=== PATIENT | female | born 1955 | race Caucasian/White ===

== ENCOUNTER 2017-05-08 23:12 | Emergency (ER) | payer OTHER ==
[2017-05-08 23:25] VITALS: BP 150/76; PULSE 84; RESP 18; O2SAT 96; BMI 42.9
[2017-05-08 23:34] VITALS: TEMP 98.1
--- NOTE | 2017-05-08 23:49 | ED PDOC ---
Arrival/HPI - General Time Seen by Provider: 05/08/17 23:21 Historian: Patient - History of Present Illness Narrative History of Present Illness (Text): 05/08/17 23:45 Norma Eaton is a 61 year old female, whose past medical history includes chronic back pain, spinal surgery, diabetes, hypertension, and anxiety, who presents to the Emergency department complaining of lower back pain for the past few days. Patient reports pain is worse when bending over. Patient had a history of chronic back pain, spinal surgery, and epidurals for pain management for which she regularly takes Oxycontin and Vicodin. Patient denies any fever, chills, chest pain, shortness of breath, nausea, vomiting, diarrhea, urinary symptoms, neck pain, headache, dizziness, or any other complaints. PMD: Dr. Christensen Time/Duration: < week (few days) Symptom Onset: Gradual Symptom Course: Unchanged Activities at Onset: Light Context: Home Past Medical History - Provider Review Nursing Documentation Reviewed: Yes - Infectious Disease Hx of Infectious Diseases: None - Tetanus Immunization Tetanus Immunization: Unknown - Past Medical History Past Medical History: No Previous - Cardiac Hx Cardiac Disorders: Yes Hx Hypertension: Yes Hx Peripheral Edema: Yes - Pulmonary Hx Respiratory Disorders: Yes Hx Chronic Obstructive Pulmonary Disease (COPD): Yes - Neurological Hx Neurological Disorder: Yes (neuropathy) - HEENT Hx HEENT Disorder: No - Renal Hx Renal Disorder: No - Endocrine/Metabolic Hx Endocrine Disorders: Yes Hx Diabetes Mellitus Type 2: Yes - Hematological/Oncological Hx Blood Disorders: No - Integumentary Hx Dermatological Disorder: No - Musculoskeletal/Rheumatological Hx Musculoskeletal Disorders: Yes Hx Arthritis: Yes Hx Falls: No - Gastrointestinal Hx Gastrointestinal Disorders: Yes Hx Gastroesophageal Reflux: Yes - Genitourinary/Gynecological Hx Genitourinary Disorders: No - Psychiatric Hx Psychophysiologic Disorder: Yes Hx Anxiety: Yes Hx Depression: Yes Hx Substance Use: No - Past Surgical History Past Surgical History: Non-Contributing - Surgical History Hx Musculoskeletal Surgery: Yes (carpal tunnel) Hx Orthopedic Surgery: Yes (R knee sx, spinal sx) Other/Comment: TUBAL LIGATION - Anesthesia Hx Anesthesia: Yes Hx Anesthesia Reactions: No Hx Malignant Hyperthermia: No - Suicidal Assessment Feels Threatened In Home Enviroment: No Family/Social History - Physician Review Nursing Documentation Reviewed: Yes Family/Social History: Unknown Family HX Smoking Status: Heavy Smoker > 10 Cigarettes Daily Hx Alcohol Use: No Hx Substance Use: No Hx Substance Use Treatment: No Allergies/Home Meds Allergies/Adverse Reactions: Allergies Penicillins Allergy (Verified 05/08/17 23:46) RASH Review of Systems - Physician Review All systems were reviewed & negative as marked: Yes - Review of Systems Constitutional: Normal. absent: Fevers Eyes: Normal ENT: Normal Respiratory: Normal. absent: SOB, Cough Cardiovascular: Normal. absent: Chest Pain Gastrointestinal: Normal. absent: Abdominal Pain, Diarrhea, Nausea, Vomiting Genitourinary Female: Normal. absent: Dysuria, Frequency, Hematuria, Urine Output Changes Musculoskeletal: Back Pain. absent: Neck Pain Skin: Normal. absent: Rash Neurological: Normal. absent: Headache, Dizziness Endocrine: Normal Hemo/Lymphatic: Normal Psychiatric: Normal Physical Exam Vital Signs Reviewed: Yes Vital Signs Temp Pulse Resp BP Pulse Ox 05/08/17 23:25 98.1 F 84 18 150/76 96 Temperature: Afebrile Blood Pressure: Normal Pulse: Regular Respiratory Rate: Normal Appearance: Positive for: Well-Appearing, Non-Toxic, Comfortable Pain Distress: None Mental Status: Positive for: Alert and Oriented X 3 - Systems Exam Head: Present: Atraumatic, Normocephalic Pupils: Present: PERRL Extroacular Muscles: Present: EOMI Conjunctiva: Present: Normal Mouth: Present: Moist Mucous Membranes Neck: Present: Normal Range of Motion Respiratory/Chest: Present: Clear to Auscultation, Good Air Exchange. No: Respiratory Distress, Accessory Muscle Use Cardiovascular: Present: Regular Rate and Rhythm, Normal S1, S2. No: Murmurs Abdomen: Present: Normal Bowel Sounds. No: Tenderness, Distention, Peritoneal Signs Back: Present: Normal Inspection Upper Extremity: Present: Normal Inspection. No: Cyanosis, Edema Lower Extremity: Present: Normal Inspection. No: Edema Neurological: Present: GCS=15, CN II-XII Intact, Speech Normal Skin: Present: Warm, Dry, Normal Color. No: Rashes Psychiatric: Present: Alert, Oriented x 3, Normal Insight, Normal Concentration Medical Decision Making ED Course and Treatment: 05/08/17 23:45 Impression: 61 year old female complaining of bilateral lower back pain. Differential Diagnosis included but are not limited to: chronic back pain vs. renal colic Plan: -- CT Abdomen and Pelvis w/o contrast -- Labs -- Urinalysis -- Toradol -- Reassess and disposition Prior Visits: Notes and results from previous visits were reviewed. On 06/30/2015, pt was seen in the Emergency department for back pain, shortness of breath, and productive cough. Pt was d/c home. Progress Notes: [place] C.O.D. AUDIT CLERK reviewed, pt received 90 tablets of Hydrocodone-Acetaminophen and 60 tablets of Oxycontin on 04/17/2017. 05/09/17 01:12 Reviewed radiology, CT Abdomen and Pelvis shows: IMPRESSION: 1. No CT evidence of urolithiasis. 2. LEFT adrenal lesion, likely benign. 3. Incidental/non-acute findings are described above. 05/09/17 02:30 On reevaluation the patient feels better and is in no acute distress. Patient is stable for discharge. Patient was instructed to follow up with physician/ clinic in 1-2 days or return if symptoms persist/worsen or new concerning symptoms arise. - Lab Interpretations Microbiology Results: Microbiology Results 05/09/17 01:16 Urine,Clean Catch Urine Culture - Final No Growth (<1,000 CFU/ML) Lab Results: 05/09/17 00:59 05/09/17 00:59 Lab Results 05/09/17 01:16: Urine Color Yellow, Urine Appearance Sl cloudy, Urine pH 6.0, Ur Specific [place] 1.010, Urine Protein Negative, Urine Glucose (UA) Negative, Urine Ketones Negative, Urine Blood Negative, Urine Nitrate Negative, Urine Bilirubin Negative, Urine Urobilinogen 0.2, Ur Leukocyte Esterase Moderate H, Urine RBC 0 - 2, Urine WBC 2 - 5, Ur Epithelial Cells 0 - 2, Urine Bacteria Occ 05/09/17 00:59: Sodium 140, Potassium 3.7, Chloride 99, Carbon Dioxide 33, Anion Gap 12, BUN 19, Creatinine 1.0, Est GFR ( Amer) > 60, Est GFR (Non- Af Amer) 56, Random Glucose 142 H, Calcium 9.2, Total Bilirubin 0.4, AST 20, ALT 20, Alkaline Phosphatase 106, Total Protein 7.2, Albumin 3.9, Globulin 3.4, Albumin/Globulin Ratio 1.1 05/09/17 00:59: WBC 8.4 D, RBC 5.11, Hgb 14.3, Hct 43.8, MCV 85.7, MCH 28.0, MCHC 32.6, RDW 15.3 H, Plt Count 251, MPV 10.8, Gran % 66.8, Lymph % (Auto) 26.3 , [place] % (Auto) 5.2, Eos % (Auto) 1.5, Baso % (Auto) 0.2, Gran # 5.60, Lymph # 2.2, [place] # 0.4, Eos # 0.1, Baso # 0.02 I have reviewed the lab results: Yes - RAD Interpretation Narrative RAD Interpretations (Text): CT Abdomen and Pelvis shows: Lower thorax: Minimal atelectasis/scarring. ABDOMEN: Liver: Fatty infiltration. Gallbladder and bile ducts: No calcified stones. No ductal dilation. Pancreas: Unremarkable. No ductal dilation. Spleen: No splenomegaly. Adrenals: No mass. Kidneys and ureters: No renal calculi. No hydronephrosis. Stomach and bowel: No definite mural thickening. No obstruction. Appendix: Normal caliber. No inflammation. PELVIS: Bladder: Unremarkable. No stones. Reproductive: Unremarkable as visualized. ABDOMEN and PELVIS: Adrenals: 4.3 x 5.0 x 4.0 cm LEFT adrenal lesion, predominantly fat density with few peripheral areas of fluid density, grossly stable. Intraperitoneal space: No significant fluid collection. No free air. Bones/joints: Mild degenerative changes of spine. No acute fracture. Soft tissues: Unremarkable. Vasculature: Moderate atherosclerotic disease. No aneurysm. Lymph nodes: No pathologically enlarged lymph nodes. IMPRESSION: 1. No CT evidence of urolithiasis. 2. LEFT adrenal lesion, likely benign. 3. Incidental/non-acute findings are described above. Radiology Orders: 05/08/17 23:47 ABD & PELVIS W/O PO OR IV CONT [CT] Stat Yarn Weigher: Radiologist - Medication Orders Current Medication Orders: Discontinued Medications Ketorolac Tromethamine (Toradol) 30 mg IVP STAT STA Stop: 05/08/17 23:48 Last Admin: 05/09/17 01:10 Dose: 30 mg Morphine Sulfate (Morphine) 2 mg IVP STAT STA Stop: 05/09/17 01:46 Last Admin: 05/09/17 01:57 Dose: 2 mg - Scribe Statement The provider has reviewed the documentation as recorded by the Jodi Rogers Provider Scribe Attestation: All medical record entries made by the Jodi were at my direction and personally dictated by me. I have reviewed the chart and agree that the record accurately reflects my personal performance of the history, physical exam, medical decision making, and the department course for this patient. I have also personally directed, reviewed, and agree with the discharge instructions and disposition. Disposition/Present on Arrival - Present on Arrival Any Indicators Present on Arrival: No History of DVT/PE: No History of Uncontrolled Diabetes: Yes Urinary Catheter: No History of Decub. Ulcer: No History Surgical Site Infection Following: None - Disposition Have Diagnosis and Disposition been Completed?: Yes Diagnosis: Back pain Disposition: HOME/ ROUTINE Disposition Time: 02:35 Condition: GOOD Discharge Instructions (ExitCare): Chronic Back Pain (ED) Prescriptions: Nitrofurantoin Macrocrystal [Macrodantin] 100 mg PO BID #14 capsule Referrals: Catherine Christensen DO [Primary Care Provider] - Follow up with primary Forms: [facility] (Thai)
--- NOTE | 2017-05-09 00:55 | CT ---
EXAM: CT Abdomen and Pelvis Without Intravenous Contrast CLINICAL HISTORY: 61 years old, female; Pain; Abdominal pain; Flank; Lower; Prior surgery; Surgery type: Tubal ligation; Additional info: R/O stone TECHNIQUE: Axial computed tomography images of the abdomen and pelvis without intravenous contrast. All CT scans at this facility use one or more dose reduction techniques, viz.: automated exposure control; ma/kV adjustment per patient size (including targeted exams where dose is matched to indication; i.e. head); or iterative reconstruction technique. Coronal and sagittal reformatted images were created and reviewed. COMPARISON: No relevant prior studies available. FINDINGS: Lower thorax: Minimal atelectasis/scarring. ABDOMEN: Liver: Fatty infiltration. Gallbladder and bile ducts: No calcified stones. No ductal dilation. Pancreas: Unremarkable. No ductal dilation. Spleen: No splenomegaly. Adrenals: No mass. Kidneys and ureters: No renal calculi. No hydronephrosis. Stomach and bowel: No definite mural thickening. No obstruction. Appendix: Normal caliber. No inflammation. PELVIS: Bladder: Unremarkable. No stones. Reproductive: Unremarkable as visualized. ABDOMEN and PELVIS: Intraperitoneal space: 4.3 x 5.0 x 4.0 cm lesion predominantly fat density with few peripheral areas of fluid density. Bones/joints: Mild degenerative changes of spine. No acute fracture. Soft tissues: Unremarkable. Vasculature: Moderate atherosclerotic disease. No aneurysm. Lymph nodes: No pathologically enlarged lymph nodes. IMPRESSION: 1. No CT evidence of urolithiasis. 2. LEFT adrenal lesion, likely benign. Compare with prior examinations if available. 3. Incidental/non-acute findings are described above.
[2017-05-09 01:22] LABS: BASO # 0.02 K/mm3 (0.0-2.0); BASO % 0.2 % (0.0-3.0); EOS # 0.1 (0.0-0.7); EOS % 1.5 % (1.5-5.0); GRAN # 5.6 (1.4-6.5); GRAN % 66.8 % (50.0-68.0); HEMATOCRIT 43.8 % (36.0-48.0); LYMPH # 2.2 (1.2-3.4); LYMPH % 26.3 % (22.0-35.0); MEAN CELL VOLUME 85.7 fl (80.0-105.0); MEAN CORPUSCULAR HGB CONC 32.6 g/dl (31.0-37.0); MEAN PLATELET VOLUME 10.8 fl (7.0-11.0); MONO # 0.4 (0.1-0.6); MONO % 5.2 % (1.0-6.0); RED CELL DISTRIBUTION WIDTH 15.3 % (11.5-14.5); WHITE BLOOD COUNT 8.4 10^3/ul (4.5-11.0)
[2017-05-09 01:28] LABS: ALB/GLOB RATIO 1.1 (1.1-1.8); ALKALINE PHOSPHATASE 106 U/L (38-133); ALT/SGPT 20 U/L (7-56); AST/SGOT 20 U/L (15-39); BILIRUBIN,TOTAL 0.4 mg/dL (0.2-1.3); BLOOD UREA NITROGEN 19 mg/dL (7-21); CALCIUM 9.2 mg/dL (8.4-10.5); CARBON DIOXIDE 33 mmol/L (21-33); CHLORIDE 99 mmol/L (98-107); GFR AFRICAN-AMERICAN > 60; GLUCOSE,RANDOM 142 mg/dL (70-110); POTASSIUM 3.7 mmol/L (3.6-5.0); SODIUM 140 mmol/L (132-148); TOTAL PROTEIN 7.2 g/dL (5.8-8.3)
[2017-05-09] MEDS ORDERED: Morphine 2 mg/ml ISec IVP STA (01:45)
[2017-05-09 01:48] LABS: URINE BILIRUBIN NEGATIVE (NEGATIVE); URINE BLOOD NEGATIVE (NEGATIVE); URINE GLUCOSE (UA) NEGATIVE (NEGATIVE); URINE KETONE NEGATIVE (NEGATIVE); URINE LEUKOCYTE ESTERASE MODERATE Leu/uL (NEGATIVE); URINE PROTEIN NEGATIVE mg/dL (<30 mg/dL); URINE UROBILINOGEN 0.2 E.U./dL (<1 E.U./dL)
[2017-05-09 01:50] LABS: URINE APPEARANCE SL CLOUDY (CLEAR); URINE COLOR YELLOW (YELLOW)
[2017-05-09 02:20] LABS: URINE BACTERIA OCC (NEG); URINE EPITHELIAL CELLS 0 - 2 /hpf (0-5); URINE RBC 0 - 2 /hpf (0-2)
== END 2017-05-09 02:31 | disposition home or self-care (01) ==
LOC: ED 23:12
DX: M54.9 Dorsalgia, unspecified (principal); G89.29 Other chronic pain; I10 Essential (primary) hypertension; E11.9 Type 2 diabetes mellitus without complications; F17.210 Nicotine dependence, cigarettes, uncomplicated
CPT/HCPCS: 74176; 80053; 81001; 85025; 87086; 96374; 96375; 99283; J1885; J2270

== ENCOUNTER 2018-04-15 14:16 | Observation (INO) | payer OTHER ==
[2018-04-15 14:19] VITALS: BMI 32.3
--- NOTE | 2018-04-15 14:45 | CT ---
Date of service: 04/15/2018 PROCEDURE: CT HEAD WITHOUT CONTRAST. HISTORY: code stroke COMPARISON: None available. TECHNIQUE: Axial computed tomography images were obtained through the head/brain without intravenous contrast. Radiation dose: Total exam DLP = 935.27 mGy-cm. This CT exam was performed using one or more of the following dose reduction techniques: Automated exposure control, adjustment of the mA and/or kV according to patient size, and/or use of iterative reconstruction technique. FINDINGS: HEMORRHAGE: No intracranial hemorrhage. BRAIN: No mass effect or edema. No significant atrophy. Small old left high frontal focal encephalomalacia likely due to old infarct in the MCA territory. No evidence of acute infarct. Minimal chronic periventricular white matter ischemic change. VENTRICLES: Unremarkable. No hydrocephalus. CALVARIUM: Unremarkable. PARANASAL SINUSES: Unremarkable as visualized. No significant inflammatory changes. MASTOID AIR CELLS: Unremarkable as visualized. No inflammatory changes. OTHER FINDINGS: None. IMPRESSION: No evidence of acute infarct. No intracranial hemorrhage. Probable small old left high frontal infarct. The findings in this examination were discussed by telephone with Dr. Martin at 2:40 p.m. on 04/15/2018.
[2018-04-15 14:46] LABS: BASO # 0.02 K/mm3 (0.0-2.0); BASO % 0.2 % (0.0-3.0); EOS # 0.1 (0.0-0.7); EOS % 0.6 % (1.5-5.0); GRAN # 9.16 (1.4-6.5); GRAN % 73.4 % (50.0-68.0); HEMOGLOBIN 13.8 g/dL (12.0-16.0); LYMPH # 2.7 (1.2-3.4); LYMPH % 21.5 % (22.0-35.0); MEAN CELL VOLUME 82.7 fl (80.0-105.0); MEAN CORPUSCULAR HEMOGLOBIN 26.8 pg (25.0-35.0); MEAN CORPUSCULAR HGB CONC 32.4 g/dl (31.0-37.0); MEAN PLATELET VOLUME 10.3 fl (7.0-11.0); MONO # 0.5 (0.1-0.6); MONO % 4.3 % (1.0-6.0); RBC 5.15 10^6/uL (3.5-6.1); RED CELL DISTRIBUTION WIDTH 14.7 % (11.5-14.5); WHITE BLOOD COUNT 12.5 10^3/ul (4.5-11.0)
--- NOTE | 2018-04-15 14:49 | ED PDOC ---
Arrival/HPI - General Chief Complaint: Weakness/Neurological Deficit Time Seen by Provider: 04/15/18 14:20 Historian: Patient - History of Present Illness Narrative History of Present Illness (Text): 04/15/18 14:20 A 62 year old female, whose past medical history includes COPD, hypertension, peripheral edema, neuropathy, and diabetes type 2, brought in by EMS for possible stroke. Per , patient was in normal state of behavior earlier this morning. They went to see an filling and stapling machine operator, and afterwards began having a body-shaking episode, 1 hour ago, that lasted for 1 minute. Patient was better afterwards. According to , patient has had these episodes on and off for 1 month. Patient later on while sitting at home began experiencing difficulty speaking. called 911 immediately afterwards. Non-smoker/ drinker. PMD: Dr. Christensen Associated Symptoms (Text): 04/15/18 15:05 describes generalized shaking episodes which last on the order 1 minute for the last 3 or 4 weeks. She is in the middle of an outpatient workup. He reports an outpatient MRI at a different facility which was unrevealing. Today the patient was in her normal state of health. They went to the filling and stapling machine operator this morning. Afterwards the patient had one of these generalize shaking episodes. She recovered from that and was sitting at home and approximately 45 minutes prior to arrival developed an expressive aphasia. She is awake and alert and able to follow commands with no difficulty. There are no other localizing findings. Past Medical History - Provider Review Nursing Documentation Reviewed: Yes - Infectious Disease Hx of Infectious Diseases: None - Tetanus Immunization Tetanus Immunization: Unknown - Reproductive Menopause: Yes - Past Medical History Past Medical History: No Previous - Cardiac Hx Cardiac Disorders: Yes Hx Hypertension: Yes Hx Peripheral Edema: Yes - Pulmonary Hx Respiratory Disorders: Yes Hx Chronic Obstructive Pulmonary Disease (COPD): Yes - Neurological Hx Neurological Disorder: Yes (neuropathy) - HEENT Hx HEENT Disorder: No - Renal Hx Renal Disorder: No - Endocrine/Metabolic Hx Endocrine Disorders: Yes Hx Diabetes Mellitus Type 2: Yes - Hematological/Oncological Hx Blood Disorders: No - Integumentary Hx Dermatological Disorder: No - Musculoskeletal/Rheumatological Hx Musculoskeletal Disorders: Yes Hx Arthritis: Yes Hx Falls: No - Gastrointestinal Hx Gastrointestinal Disorders: Yes Hx Gastroesophageal Reflux: Yes - Genitourinary/Gynecological Hx Genitourinary Disorders: No - Psychiatric Hx Psychophysiologic Disorder: Yes Hx Anxiety: Yes Hx Depression: Yes Hx Substance Use: No - Past Surgical History Past Surgical History: Non-Contributing - Surgical History Hx Musculoskeletal Surgery: Yes (carpal tunnel) Hx Orthopedic Surgery: Yes (R knee sx, spinal sx) Other/Comment: TUBAL LIGATION - Anesthesia Hx Anesthesia: Yes Hx Anesthesia Reactions: No Hx Malignant Hyperthermia: No - Suicidal Assessment Feels Threatened In Home Enviroment: No Family/Social History - Physician Review Nursing Documentation Reviewed: Yes Family/Social History: No Known Family HX Smoking Status: Heavy Smoker > 10 Cigarettes Daily Hx Alcohol Use: No Hx Substance Use: No Hx Substance Use Treatment: No Allergies/Home Meds Allergies/Adverse Reactions: Allergies Penicillins Allergy (Verified 05/08/17 23:46) RASH Review of Systems - Review of Systems Systems not reviewed;Unavailable: Altered Mental Status ENT: Voice Changes (slurred speech) Neurological: Other (body-shaking episode this afternoon) Physical Exam Vital Signs Temp Pulse Resp BP Pulse Ox 04/15/18 17:24 98.7 F 04/15/18 16:04 98.3 F 85 18 127/57 L 89 L 04/15/18 15:13 98.2 F 82 18 114/52 L 95 Finger Stick Blood Glucose: 220 - Systems Exam Head: Present: Atraumatic, Normocephalic Pupils: Present: PERRL Extroacular Muscles: Present: EOMI Conjunctiva: Present: Normal Mouth: Present: Moist Mucous Membranes Pharnyx: No: ERYTHEMA, EXUDATE, TONSILS ENLARGED Neck: Present: Normal Range of Motion Respiratory/Chest: Present: Clear to Auscultation, Good Air Exchange, Decreased Breath Sounds. No: Respiratory Distress, Accessory Muscle Use Cardiovascular: Present: Regular Rate and Rhythm, Normal S1, S2. No: Murmurs Abdomen: No: Tenderness, Distention, Peritoneal Signs Back: Present: Normal Inspection Upper Extremity: Present: Normal Inspection. No: Cyanosis, Edema Lower Extremity: Present: Normal Inspection. No: Edema Neurological: Present: GCS=15, CN II-XII Intact, Motor Func Grossly Intact, Normal Sensory Function (Expressive aphasia and slurred speech), Normal Cerebellar Funct, Other (expressive aphasia and slurred speech). No: Speech Normal Skin: Present: Warm, Dry, Normal Color. No: Rashes Psychiatric: Present: Alert, Oriented x 3, Normal Insight, Normal Concentration Medical Decision Making ED Course and Treatment: 04/15/18 14:24 Impression: 62 year old female with possible stroke. Physical exam shows expressive aphasia and slurred speech. Plan: -- EKG -- Head CT -- Chest X-ray -- Labs -- Urinalysis -- Reassess and disposition Prior Visits: Notes and results from previous visits were reviewed. Progress Notes: 04/15/18 14:19 Code Stroke called. 04/15/2018 14:[address] IMPRESSION: No evidence of acute infarct. No intracranial hemorrhage. Probable small odl left high frontal infarct. Dictator: Markus Perdomo MD 04/15/18 14:[address] Godfrey, who states patient is not a tPA candidate. 04/15/18 15:13 Case discussed with Telly neurologist , who reports that the patient is not a TPA candidate as there is probable seizure activity secondary to the old frontal CVA seen on CT today. 04/15/18 15:16 EKG shows normal sinus rhythm rate approximately [address] or T-wave changes 04/15/18 15:[address] Cardenas and Dr. Palma. Dr. Cardenas will have patient admitted under telemetry, and Dr. Palma requests patient be given Keppra and will see patient for consult. 04/15/18 15:25 Discussed with PMD and neurologist. Possible seizure activity versus CVA. 04/15/2018 15:55 Chest X-ray IMPRESSION: No active disease. Dictator: Brendan Duque MD - Lab Interpretations Lab Results: 04/15/18 14:20 04/15/18 14:20 Lab Results 04/15/18 14:21: POC Glucose (mg/dL) 220 H 04/15/18 14:20: Alcohol, Quantitative < 10 04/15/18 14:20: Sodium 136, Potassium 3.7, Chloride 95 L, Carbon Dioxide 31, Anion Gap 14, BUN 18, Creatinine 0.8, Est GFR ( Amer) > 60, Est GFR (Non- Af Amer) > 60, Random Glucose 225 H, Calcium 8.9, Phosphorus 3.1, Magnesium 1.6 L, Total Bilirubin 0.4, AST 18, ALT 20, Alkaline Phosphatase 117, Lactate Dehydrogenase 458, Total Creatine Kinase 48, Troponin I < 0.01, Total Protein 7.2, Albumin 3.8, Globulin 3.4, Albumin/Globulin Ratio 1.1 04/15/18 14:20: PT 11.7, INR 1.03, APTT 30.7 04/15/18 14:20: WBC 12.5 H D, RBC 5.15, Hgb 13.8, Hct 42.6, MCV 82.7 D, MCH 26.8, MCHC 32.4, RDW 14.7 H, Plt Count 301, MPV 10.3, Gran % 73.4 H, Lymph % ( Auto) 21.5 L, [place] % (Auto) 4.3, Eos % (Auto) 0.6 L, Baso % (Auto) 0.2, Gran # 9.16 H, Lymph # (Auto) 2.7, [place] # (Auto) 0.5, Eos # (Auto) 0.1, Baso # (Auto) 0.02 - RAD Interpretation Radiology Orders: 04/15/18 14:19 HEAD W/O (CODE STROKE) [CT] Stat 04/15/18 14:36 CHEST PORTABLE [RAD] Stat - Medication Orders Current Medication Orders: Levetiracetam (Keppra 500mg Ivpb) 500 mg in 100 mls @ 400 mls/hr IV Q12 ARPAN Discontinued Medications Levetiracetam 1,000 mg/ Sodium (Chloride) 110 mls @ 440 mls/hr IV ONCE ONE Stop: 04/15/18 15:37 Last Admin: 04/15/18 15:55 Dose: 440 mls/hr eMAR Start Stop Document 04/15/18 15:55 SRE (Rec: 04/15/18 15:56 SRE [id number]) Intravenous Solution Start Date 04/15/18 Start Time 15:56 End Date 04/15/18 End time 16:30 Total Infusion Time 34 NIHSS Scale ([place]) Time Performed: 14:20 - How Severe is the Stoke Baseline Level of Consciousness: 0=Alert LOC to Questions: 0=Both comments correct LOC to commands: 0=Obeys both correctly Best Gaze: 0=Normal Visual: 0=No visual loss Facial: 0=Normal Motor Arm - Left: 0=No drift Motor Arm - Right: 0=No drift Motor Leg - Left: 0=No drift Motor Leg - Right: 0=No drift Limb Ataxia: 0=Absent Sensory: 0=Normal Best Language: 2=Severe aphasia Dysarthia: 1=Mild to moderate slurring Extinction & Inattention (Neglect): 0=Normal, no object Score: 3 Risk Level: Minor Stroke Risk - Scribe Statement The provider has reviewed the documentation as recorded by the Jodi Bruce Provider Scribe Provider Scribe Attestation: All medical record entries made by the Jodi were at my direction and personally dictated by me. I have reviewed the chart and agree that the record accurately reflects my personal performance of the history, physical exam, medical decision making, and the department course for this patient. I have also personally directed, reviewed, and agree with the discharge instructions and disposition. Disposition/Present on Arrival - Present on Arrival Any Indicators Present on Arrival: No History of DVT/PE: No History of Uncontrolled Diabetes: Yes Urinary Catheter: No History of Decub. Ulcer: No History Surgical Site Infection Following: None - Disposition Have Diagnosis and Disposition been Completed?: Yes Diagnosis: Seizure, Cerebrovascular accident, Aphasia Disposition: HOSPITALIZED Disposition Time: 15:26 Patient Plan: Admission, Telemetry Patient Problems: Current Active Problems Problem Status Onset Aphasia Acute Cerebrovascular accident Acute Seizure Acute Condition: SERIOUS
[2018-04-15 14:55] LABS: ALB/GLOB RATIO 1.1 (1.1-1.8); ALBUMIN 3.8 g/dL (3.0-4.8); ALT/SGPT 20 U/L (7-56); AST/SGOT 18 U/L (14-36); BLOOD UREA NITROGEN 18 mg/dL (7-21); CALCIUM 8.9 mg/dL (8.4-10.5); GFR AFRICAN-AMERICAN > 60; GFR NON-AFRICAN AMERICAN > 60
[2018-04-15 15:05] LABS: TROPONIN I < 0.01 ng/mL
[2018-04-15 15:08] LABS: INR 1.03; PARTIAL THROMBOPLASTIN TIME 30.7 Seconds (25.1-36.5); PROTHROMBIN TIME 11.7 SECONDS (9.4-12.5)
[2018-04-15] MEDS ORDERED: levETIRAcetam 1,000 MG in Sodium Chloride 0.9% 100 ML IV ONE (15:23)
--- NOTE | 2018-04-15 15:57 | RAD ---
Date of service: 04/15/2018 HISTORY: cva COMPARISON: 06/30/2015 FINDINGS: LUNGS: No active pulmonary disease. PLEURA: No significant pleural effusion identified, no pneumothorax apparent. CARDIOVASCULAR: Normal. OSSEOUS STRUCTURES: No significant abnormalities. VISUALIZED UPPER ABDOMEN: Normal. OTHER FINDINGS: None. IMPRESSION: No active disease.
[2018-04-15 17:10] LABS: URINE BILIRUBIN NEGATIVE (NEGATIVE); URINE BLOOD NEGATIVE (NEGATIVE); URINE GLUCOSE (UA) NEGATIVE (NEGATIVE); URINE LEUKOCYTE ESTERASE MODERATE Leu/uL (NEGATIVE); URINE PROTEIN NEGATIVE mg/dL (<30 mg/dL); URINE UROBILINOGEN 0.2 E.U./dL (<1 E.U./dL)
[2018-04-15 17:11] LABS: URINE APPEARANCE CLEAR (CLEAR); URINE COLOR YELLOW (YELLOW)
[2018-04-15 17:17] LABS: URINE RBC NEGATIVE /hpf (0-2)
[2018-04-15 18:00] LABS: BARBITURATES, UR NEGATIVE (NEGATIVE); BENZODIAZEPINES, UR NEGATIVE (NEGATIVE); OPIATES, UR POSITIVE (NEGATIVE); PHENCYCLIDINE, UR NEGATIVE (NEGATIVE)
--- NOTE | 2018-04-15 18:18 | CON ---
Copied To: Arnold Palma MD Attending MD: Arnold Palma MD DATE: 04/15/2018 NEUROLOGY CONSULTATION CHIEF COMPLAINT: Altered mental status, questionable seizure. HISTORY OF PRESENT ILLNESS: This is a 62-year-old woman with past medical history of type 2 diabetes mellitus, hyperlipidemia, hypertension, diabetic peripheral neuropathy, bilateral carpal tunnel syndrome, peripheral vascular disease in lower extremities, smoker, history of left MCA territory infarct associated with old moderate size left frontal encephalomalacia with chronic ischemic changes seen on her CAT scan on 01/26/2018 as well as seen similar in her CAT scan today in the ER who came in for generalized shaking episode lasting a minute and also had a recent EEG as an outpatient which showed diffuse bilateral slowing consistent with bilateral cerebral dysfunction, no evidence of any epileptiform activity who came for a possible evaluation for her aphasia and it seems to be mostly postictal. Currently, she has no longer Keppra was given in the ER. She is moving all extremities status post residual right-sided weakness. REVIEW OF SYSTEMS: A 14-point review of systems is negative except as per the HPI. PAST MEDICAL HISTORY: As above. FAMILY HISTORY: Noncontributory. ALLERGIES: PENICILLIN. LABORATORY DATA: Sodium is 136, potassium 3.7, chloride 95, carbon dioxide of 31, BUN of 18, creatinine of 0.8, random glucose of 225. PHYSICAL EXAMINATION: VITAL SIGNS: Temperature of 98, pulse rate of 85, blood pressure 127/57, respiratory rate of 18, oxygen saturation of 95% on room air. GENERAL: The patient is sitting up in bed, in no acute distress. HEENT: Head is atraumatic, normocephalic. PERRLA. Extraocular muscles intact. NECK: Supple. No JVD. No adenopathy noted. LUNGS: Clear to auscultation. No adventitious sounds. HEART: S1 and S2. Normal rate and rhythm. No murmurs, rubs, or gallops. ABDOMEN: Soft, nontender, nondistended. Bowel sounds present. EXTREMITIES: No clubbing. No cyanosis. Peripheral pulses 2+ felt bilaterally. NEUROLOGIC: The patient is alert and oriented to person and place. Her thought process is slow. Cranial nerves II through XII are intact. Motor exam: Moves all extremities equally except for some residual mild right-sided weakness from prior CVA. Sensory exam: Decreased light touch and pinprick up to the calves bilaterally. Decreased vibration of the toes. DTRs are 2+ throughout and 1 at both knees and ankles. Coordination: Hfywqs-ix-nphl intact. No dysmetria noted. ASSESSMENT AND RECOMMENDATIONS: This is a 62-year-old woman with past medical history of type 2 diabetes mellitus, hyperlipidemia and diabetic peripheral neuropathy, bilateral carpel tunnel syndrome, peripheral vascular disease in lower extremities, smoker, history of old left fontal infarct/encephalomalacia with chronic ischemic changes with mild residual subtle right-sided weakness, who had generalized movements of the extremities likely could be secondary to a seizure from underlying encephalomalacia in the left frontal . She had recently had an EEG in 03/2018 which shows bilateral cerebral dysfunction, no evidence of any epileptiform activity. She is on aspirin 81 and Plavix 75 for stroke prevention at home. At this time we will recommend: 1. Start her on Keppra 500 mg IV every 12 hours and was can be converted to p.o. 2. Keep her blood sugars between 140 to 180. 3. Diabetic diet. 4. Possible MRI of the brain to assess for any stroke like symptoms given her risk factors and continue with current present medical management and PT assessment. Arnold Palma MD
[2018-04-15] MEDS ORDERED: Magnesium Sulfate 1 gm in D5W 1 GM/100 ML BAG IVPB ONE (18:51)
--- NOTE | 2018-04-15 19:59 | CP.PCM.CON ---
History of Present Illness - History of Present Illness History of Present Illness: Anup Dunn PGY2 Neurology/CODE STROKE Note for Dr. Godfrey Ms. Eaton is a 62-year-old female with a PMH of morbid obesity, DM2 (on insulin) , HTN, HLD, diabetic neuropathy, tobacco use and anxiety who presented to the ED by EMS after not being able to speak. CODE STROKE was called and patient was evaluated by me as part of the neurology team. She is unable to verbalize words , but shows proper comprehension, the ability to respond with writing and is following commands. Per , who is bedside, the patient was in normal state of behavior earlier this morning, when they went to see an shift manager (where she had her pupils dilated for a procedure), and afterwards began having a body-shaking episode, 1 hour prior to presentation, that lasted for 1 minute. Patient was better afterwards. According to , patient has had these episodes, which last about 1 minute, on and off for 2 months. The patient is being followed by Dr. Palma as an outpatient for these episodes. The patient is able to nod to confirm that they mainly affect her right side (RLE > RUE). The patient denies any other weakness, but does state that her head feels heavy. Patient denies any other symptoms of focal weakness, changes in vision/hearing, chest pain, sob, fevers/chills, recent illness. PMD: Dr. Christensen Neuro: Dr. Palma PMH: as above PSH: ortho procedures Meds: as per NOV Allergies: PCN Shx: 1 pk/day smoker for >45 yrs, denies EtOH or drug use Fhx: CVA, heart disease Review of Systems - Review of Systems Systems not reviewed;Unavailable: Other (attempted but not obtained due to aphasia) Past Patient History - Infectious Disease Hx of Infectious Diseases: None - Tetanus Immunizations Tetanus Immunization: Unknown - Past Medical History & Family History Past Medical History?: Yes Past Family History: Reviewed and not pertinent - Past Social History Smoking Status: Heavy Smoker > 10 Cigarettes Daily Alcohol: None Drugs: Denies Home Situation {Lives}: With Family - CARDIAC Hx Cardiac Disorders: Yes Hx Hypercholesterolemia: Yes Hx Hypertension: Yes Hx Peripheral Edema: Yes - PULMONARY Hx Respiratory Disorders: Yes Hx Chronic Obstructive Pulmonary Disease (COPD): Yes - NEUROLOGICAL Hx Neurological Disorder: Yes (neuropathy) Hx Seizures: Yes - HEENT Hx HEENT Problems: No - RENAL Hx Chronic Kidney Disease: No - ENDOCRINE/METABOLIC Hx Endocrine Disorders: Yes Hx Diabetes Mellitus Type 2: Yes - HEMATOLOGICAL/ONCOLOGICAL Hx Blood Disorders: No - INTEGUMENTARY Hx Dermatological Problems: No - MUSCULOSKELETAL/RHEUMATOLOGICAL Hx Musculoskeletal Disorders: Yes Hx Arthritis: Yes Hx Falls: No - GASTROINTESTINAL Hx Gastrointestinal Disorders: Yes Hx Gastroesophageal Reflux: Yes - GENITOURINARY/GYNECOLOGICAL Hx Genitourinary Disorders: No - PSYCHIATRIC Hx Psychophysiologic Disorder: Yes Hx Anxiety: Yes Hx Depression: Yes Hx Substance Use: No - SURGICAL HISTORY Hx Musculoskeletal Surgery: Yes (carpal tunnel) Hx Orthopedic Surgery: Yes (R knee sx, spinal sx) Other/Comment: TUBAL LIGATION - ANESTHESIA Hx Anesthesia: Yes Hx Anesthesia Reactions: No Hx Malignant Hyperthermia: No Meds Allergies/Adverse Reactions: Allergies Allergy/AdvReac Type Severity Reaction Status Date / Time Penicillins Allergy RASH Verified 05/08/17 23:46 - Medications Medications: Current Medications Amlodipine Besylate (Norvasc) 10 mg PO DAILY [facility] Aspirin (Ecotrin) 81 mg PO DAILY [facility] Clopidogrel Bisulfate (Plavix) 75 mg PO DAILY [facility] Duloxetine HCl (Cymbalta) 60 mg PO DAILY [facility] Hydrochlorothiazide (Hydrodiuril) 25 mg PO DAILY [facility] Levetiracetam (Keppra 500mg Ivpb) 500 mg in 100 mls @ 400 mls/hr IV Q12 [facility] Latanoprost (Xalatan Opht) 0 ml OU HS [facility] Lorazepam (Ativan) 1 mg IVP Q6H PRN; Protocol PRN Reason: Seizure activity Losartan Potassium (Cozaar) 100 mg PO DAILY [facility] Metformin HCl (Glucophage) 1,000 mg PO BID [facility] Metoprolol Succinate (Toprol Xl) 100 mg PO DAILY [facility] Nicotine (Nicoderm Cq) 1 patch TD DAILY [facility] Pregabalin (Lyrica) 200 mg PO BID [facility] Physical Exam - Constitutional Appears: Well, Non-toxic, No Acute Distress - Head Exam Head Exam: ATRAUMATIC, NORMAL INSPECTION - Eye Exam Eye Exam: EOMI. absent: PERRL (pupils: L dilated > right, non reactive to light ) - ENT Exam ENT Exam: Mucous Membranes Moist - Neck Exam Neck exam: Positive for: Normal Inspection - Respiratory Exam Respiratory Exam: Clear to Auscultation Bilateral, NORMAL BREATHING PATTERN. absent: Rales, Rhonchi, Wheezes, Respiratory Distress - Cardiovascular Exam Cardiovascular Exam: RRR, +S1, +S2. absent: Systolic Murmur - GI/Abdominal Exam GI & Abdominal Exam: Normal Bowel Sounds, Soft. absent: Distended, Tenderness - Extremities Exam Extremities exam: Positive for: full ROM, normal inspection - Back Exam Back exam: NORMAL INSPECTION - Neurological Exam Neurological exam: Alert, CN II-XII Intact, Oriented x3, Reflexes Normal - Expanded Neurological Exam Expanded Speech: Expressive Aphasia (verbal difficulty, howevr, able to express answers in writing), Garbled Speech Cranial nerves: Facial Palsey w/Forehead Movement: Normal, Facial Sensation: Normal, Tongue Deviation: Normal Cerebellar Function: Finger to Nose: Normal Upper motor neuron: Pronator Drift: Normal Sensory exam: Lower Extremity Light Touch: Normal, Upper Extremity Light Touch: Normal Neuro motor strength exam: Left Upper Extremity: 5, Right Upper Extremity: 5, Left Lower Extremity: 5, Right Lower Extremity: 5 - Psychiatric Exam Psychiatric exam: Normal Affect, Normal Mood - Skin Skin Exam: Normal Color, Warm Results - Vital Signs Recent Vital Signs: Last Vital Signs Temp 98.2 F 04/15/18 18:52 Pulse 82 04/15/18 18:52 Resp 18 04/15/18 18:52 BP 128/73 04/15/18 18:52 Pulse Ox 94 L 04/15/18 18:52 - Labs Result Diagrams: 04/15/18 14:20 04/15/18 14:20 Labs: Laboratory Results - last 24 hr 04/15/18 04/15/18 04/15/18 16:45 17:24 18:56 POC Glucose (mg/dL) 170 H Urine Color Yellow Urine Appearance Clear Urine pH 7.0 Ur Specific [place] 1.010 Urine Protein Negative Urine Glucose (UA) Negative Urine Ketones Negative Urine Blood Negative Urine Nitrate Negative Urine Bilirubin Negative Urine Urobilinogen 0.2 Ur Leukocyte Esterase Moderate H Urine RBC Negative Urine WBC 1 - 3 Ur Epithelial Cells 1 - 3 Urine Bacteria None Urine Opiates Screen Positive H Urine Methadone Screen Negative Ur Barbiturates Screen Negative Ur Phencyclidine Scrn Negative Ur Amphetamines Screen Negative U Benzodiazepines Scrn Negative U Oth Cocaine Metabols Negative U Cannabinoids Screen Negative Assessment & Plan - Assessment and Plan (Free Text) Assessment: 62-year-old female with a PMH of morbid obesity, DM2 (on insulin), HTN, HLD, diabetic neuropathy, tobacco use and anxiety who presented to the ED by EMS after not being able to speak, likely a form of expressive aphasia. Her history seems to indicate that there could be ongoing seizures, and patient is being followed by outpatient neurologist (Dr. Palma). It is unlikely that the patient had a CVA given her symptoms, and her normal CT. Plan: Expressive aphasia - likely post-ictal to seizure - will need MRI and CTA head/neck and carotid US to r/o CVA or cardiovascular disease - cont Keppra - cont ASA, Plavix and Statin - EEG - neurochecks - admit to tele - NPO until passing swallow eval - continue further management per Dr. Palma (neurology consult on case) - Further recs per Dr. Godfrey Case was reviewed and discussed with attending, Dr. Godfrey NIHSS Stroke Scale - Date/Time Evaluation Performed Time Performed: 14:20 - How Severe is the Stroke Level of Consciousness: 0=Alert LOC to Questions: 0=Both comments correct LOC to commands: 0=Obeys both correctly Best Gaze: 0=Normal Visual: 0=No visual loss Facial: 0=Normal Motor Arm - Left: 0=No drift Motor Arm - Right: 0=No drift Motor Leg - Left: 0=No drift Motor Leg - Right: 0=No drift Limb Ataxia: 0=Absent Sensory: 0=Normal Best Language: 2=Severe aphasia Dysarthia: 2=Severe, near unintelligible or worse Extinction & Inattention (Neglect): 0=Normal, no object Score: 4 Severity Of Stroke: 0 = No Stroke
[2018-04-15] MEDS ORDERED: Iodixanol 320 mg/ml 150 ml Bottle IV ONE (20:23)
--- NOTE | 2018-04-15 20:33 | PCM.RRT ---
<Geovani Kincaid - Last Filed: 04/15/18 20:30> MATHEMATICAL SCIENCES PROFESSOR Nurse Assessment - Situation Date: 04/15/18 Time MATHEMATICAL SCIENCES PROFESSOR was called: 18:52 MATHEMATICAL SCIENCES PROFESSOR Responder Arrival Time: 18:53 MATHEMATICAL SCIENCES PROFESSOR Location:: [address] [place] [address] Room Number: [id number] MATHEMATICAL SCIENCES PROFESSOR Reason for Call: Possible Stroke MATHEMATICAL SCIENCES PROFESSOR Called By: RN - IV IV Inserted during MATHEMATICAL SCIENCES PROFESSOR?: No IV Fluids Initiated During MATHEMATICAL SCIENCES PROFESSOR?: n/a - Respiratory Oxygen Delivery Method: Nasal Cannula @L/min Oxygen Flow Rate: 2 Received Nebulizer Treatments:: No Was the Patient Ventilated with Bag/Mask 100% O2?: No Secretions Suctioned?: No Was the Patient Intubated?: No Was the Patient Placed on a Ventilator?: No - Medication Medications Administered During MATHEMATICAL SCIENCES PROFESSOR: n/a - Diagnostic Test Ordered EKG: No Chest X-Ray: No CT Scan: Yes (head) CPR started during MATHEMATICAL SCIENCES PROFESSOR?: No - Vital Signs Vital Sign: Rapid Response Vital Sign Blood Pressure 117/62 Pulse Rate 88 Respiratory Rate 18 Temperature 98.7 F Oxygen Saturation 100 - Finger Stick Blood Glucose Finger Stick Blood Glucose: 170 - Time MATHEMATICAL SCIENCES PROFESSOR Ended Time MATHEMATICAL SCIENCES PROFESSOR Ended: 18:58 - Recommendations Notifications: Attending Physician I.Reason for MATHEMATICAL SCIENCES PROFESSOR - A) Acute Change in Patient: (Select all that apply): Acute change in mental status (aphasic) - Neurological Status (Select all that apply): Alert, Responsive, Verbal, Disoriented, Confused. absent: Follows Commands, Aggressive - Respiratory Oxygen Delivery Method: Nasal Cannula @L/min Oxygen Flow Rate: 2 - Constitutional Appears: Non-toxic, No Acute Distress - Head Head Exam: ATRAUMATIC, NORMAL INSPECTION - Eyes Eye Exam: EOMI. absent: PERRL Additional Comments: dilated pupil L > R, difficulty keeping eyes open for exam - Respiratory Exam Respiratory Exam: Clear to Ausculation Bilateral, NORMAL BREATHING PATTERN. absent: Wheezes, Respiratory Distress - Cardiovascular Exam Cardiovascular Exam: REGULAR RHYTHM, +S1, +S2 - GI/Abdominal Exam GI & Abdominal Exam: Soft. absent: Tenderness - Neurological Exam Neurological Exam: Alert, Awake. absent: CN II-XII Intact, Normal Gait Additional exam: unable to accurately assess due to patient's aphasic status - Extremities Exam Extremities Exam: Normal Inspection Plan - Assessment of Findings&Treatment Plan Geovani Kincaid PGY-1- Internal Medicine Resident- MATHEMATICAL SCIENCES PROFESSOR NOTE Subjective: Patient is a 62 year old Female with a PMH of morbid obesity, DM2 (on insulin), HTN, HLD, diabetic neuropathy, tobacco use and anxiety who was admitted for evaluation and treatment of expressive aphasia. At time of admission to the floor from the ED, patient returned to her baseline neurological status, able to answer questions appropriately and clearly. MATHEMATICAL SCIENCES PROFESSOR was called by RN for evaluation and treatment of aphasic episode. Patient seen and examined at bedside. Patient was awake, alert, responding to verbal stimuli, attempting to follow commands, and was able to move extremities past midline. Upon questioning, patient was found to be slurring her words and was unable to keep her eyes open throughout entirety of exam. Patient offers no new complaints at this time, which was difficult to to ascertain due to altered mental status. 12 point review of systems unable to be ascertained due to altered mental status. Assessment and Plan: Patient is a 62 year old Female with a PMHx of morbid obesity, DM2 (on insulin) , HTN, HLD, diabetic neuropathy, tobacco use and anxiety who was re-evealuated during a rapid response for aphasia. Expressive Aphasia - Rule out acute onset stroke - CT non-contrast ordered stat- as per vrads preliminary read: Focal gliosis left frontoparietal watershed unchanged. No acute intracranial abnormality. - Neurology (Dr. Palma) was contacted - recommendations appreciated - continue on aspirin, statin and Keppra. Complete MRI brain. No acute change in intervention at this time - continue with Neurochecks q2 - family at bedside. Permission granted by patient to discuss medical information with family. [place] of plan and all questions and concerns were addressed Patient seen, case reviewed, and plan approved by attending physician, Dr. Wilson. Geovani Kincaid, PGY-1 <Jared Wilson - Last Filed: 04/16/18 08:18> MATHEMATICAL SCIENCES PROFESSOR Nurse Assessment - Vital Signs Vital Sign: Rapid Response Vital Sign Blood Pressure 117/62 Pulse Rate 88 Respiratory Rate 18 Temperature 98.7 F Oxygen Saturation 100 Attending/Attestation - Attestation I have personally seen and examined this patient.: Yes I have fully participated in the care of the patient.: Yes I have reviewed all pertinent clinical information, including history, physical exam and plan: Yes Notes (Text): 04/16/18 08:16 Patient was seen and examined in the rapid response with site medical director. Medical record note made by the resident after discussion with my direction and input after the patient was personally seen and examined by me. I have reviewed the chart and agree that the record accurately reflects by personal performance of the history, physical exam, data review, and medical decision-making, in the course for the patient. I have also personally directed the plan of care. 04/16/18 08:17
[2018-04-15] MEDS ORDERED: Latanoprost 2.5 ml Opht Soln OU SCH (22:00)
[2018-04-15] MEDS ORDERED: Pneumococcal 23-Valent Vaccine IM ONE (22:47)
[2018-04-15] MEDS: levETIRAcetam 500mg IVPB 500 MG/100 ML BAG IV SCH (22:54)
[2018-04-15 23:26] VITALS: RESP 18
[2018-04-16 05:57] VITALS: TEMP 97.5; O2SAT 93
--- NOTE | 2018-04-16 06:00 | HP ---
Copied To: Whit Cardenas MD Attending MD: Whit Cardenas MD HISTORY OF PRESENT ILLNESS: The patient is 62 years old, who was brought in because of generalized weakness, shaking, lasting for sometime and family also noticed she was not talking after that episode of shaking, so family brought to emergency room for further evaluation, but at the time patient came to emergency room, her symptoms resolved after sometime. Patient was given Keppra in the emergency room and after that she started to improve and now patient has only right-sided weakness. There is no history of fever. No chills. No history of trauma. No nausea or vomiting. No diarrhea. PAST MEDICAL HISTORY: Significant for; 1. Ake-wvyowhc-ffieprfgw diabetes. 2. Hypertension. 3. Hyperlipidemia. 4. Diabetic neuropathy. 5. Peripheral vascular disease. 6. History of left MCA territory infarct and has left frontal encephalomalacia with chronic ischemic changes. 7. History of carpal tunnel syndrome. 8. History of COPD. ALLERGIES: PATIENT IS ALLERGIC TO PENICILLIN. MEDICATIONS: At home, she is on Vytorin one tablet daily, Duoneb, Xanax 1mg daily, Percocet, OxyContin 40 mg three times a day, Prilosec 40 mg daily, Lovaza, metoprolol 25 daily, Apidra and Lantus 30 unit at bedtime, prednisone 10 mg daily. SOCIAL HISTORY: She lives with her family. Denies smoking, drinking or alcohol use. She used to be a heavy smoker and still smoke few cigarettes here and there. PHYSICAL EXAMINATION: GENERAL: Patient is awake, alert, oriented, communicative. VITAL SIGNS: Patient is afebrile, pulse 85, respirations 18, blood pressure 127/57. LUNGS: Bilateral fair airflow. No rhonchi or crackle. HEART: S1, S2 audible. ABDOMEN: Soft, nontender. No rebound. No guarding. NEUROLOGICAL: Patient is awake, alert, oriented, communicative. LABORATORY EXAM: WBC 12.5, hemoglobin 13.8, hematocrit 42.6, platelet 301. Chemistry: Sodium 136, potassium 3.7, chloride 95, CO2 of 31, BUN 18, creatinine 0.8. Blood sugar is 220. Magnesium 1.6. Urinalysis shows moderate leukocyte. Urine tox positive for opioids. DIAGNOSTIC DATA: Patient recently had EEG done as outpatient as per Dr. Arnold Palma in 03/2018 shows bilateral cerebral dysfunction, but no active epileptiform activity. ASSESSMENT: 1. Postictal confusion. 2. Seizure disorder. 3. Irj-cbszang-zfxqrymwm diabetes. 4. Hypertension. 5. Hyperlipidemia. 6. History of diabetic neuropathy. 7. Peripheral vascular disease. PLAN: Patient has been started on Keppra. Monitor her blood sugar. We will resume her usual medication. Her Neurology consult by Dr. Palma has been requested. Whit Cardenas MD
--- NOTE | 2018-04-16 08:30 | CT ---
Date of service: 04/15/2018 PROCEDURE: CT HEAD WITHOUT CONTRAST. HISTORY: Expressive aphasia, dysarthria COMPARISON: 04/15/2018. TECHNIQUE: Axial computed tomography images were obtained through the head/brain without intravenous contrast. Radiation dose: Total exam DLP = mGy-cm. This CT exam was performed using one or more of the following dose reduction techniques: Automated exposure control, adjustment of the mA and/or kV according to patient size, and/or use of iterative reconstruction technique. FINDINGS: HEMORRHAGE: No intracranial hemorrhage. BRAIN: No mass effect or edema. Cortical atrophy and chronic microvascular ischemic change. This is particularly evident in both frontal regions. Evidence of old right parietal infarct. VENTRICLES: Unremarkable. No hydrocephalus. CALVARIUM: Unremarkable. PARANASAL SINUSES: Unremarkable as visualized. No significant inflammatory changes. MASTOID AIR CELLS: Unremarkable as visualized. No inflammatory changes. OTHER FINDINGS: None. IMPRESSION: No acute intracranial abnormalities. No significant findings to account for the clinical presentation. Additional benign and/or incidental findings described above. No significant interval change compared to the prior examination(s). Concordant results (preliminary interpretation) provided by [facility]. Procedure Completed: 19:13 Preliminary ([facility]) Report: Dictated and Authenticated: 19:28. Final Interpretation: 08:28. April 16, 2018.
[2018-04-16] MEDS ORDERED: HYDROCHLOROTHIAZIDE PO SCH (10:00)
[2018-04-16] MEDS ORDERED: LOSARTAN PO SCH (10:00)
[2018-04-16] MEDS ORDERED: Metoprolol Succinate 100 mg XL Tab PO SCH (10:00)
[2018-04-16] MEDS ORDERED: Non Formulary Medication (Losartan/Hydrochlorothiazide [Hyzaar 100-25 Tablet] 1 TAB) PO SCH (10:00)
--- NOTE | 2018-04-16 10:05 | MRI ---
Date of service: 04/16/2018 PROCEDURE: MRI BRAIN WITHOUT CONTRAST HISTORY: rik COMPARISON: None. TECHNIQUE: Multiplanar, multisequence MR images of the brain were obtained without intravenous contrast enhancement. FINDINGS: HEMORRHAGE: None DWI: No evidence of an acute or early subacute infarction. BRAIN PARENCHYMA: No mass effect or edema. Chronic microvascular changes and white matter infarcts are seen bilaterally. There are no acute findings VENTRICLES: Unremarkable. No hydrocephalus. CRANIUM: Unremarkable. ORBITS: Grossly unremarkable. PARANASAL SINUSES/MASTOIDS: Clear VASCULAR SYSTEM: Skull base flow voids intact. OTHER FINDINGS: None. IMPRESSION: No acute intracranial findings. Chronic white matter infarcts bilaterally. Chronic infarct in the right occipital lobe
--- NOTE | 2018-04-16 10:52 | CP.PCM.PCO ---
Physician Communication Note - Physician Communication Note Physician Communication Note: mri showed no acute infarct. C/w Keppra 500mg po bid for sz. PT/OT.
[2018-04-16] MEDS: levETIRAcetam 500mg IVPB 500 MG/100 ML BAG IV SCH (13:27)
[2018-04-16 13:41] VITALS: BP 137/67
[2018-04-16] MEDS ORDERED: Insulin Regular 1 UNITS/0.01 ML ML SC STA (14:31)
--- NOTE | 2018-04-16 15:00 | PN ---
Copied To: Whit Cardenas MD Attending MD: Whit Cardenas MD DATE: 04/16/2018 SUBJECTIVE: The patient is [id number] seen and examined; more awake, alert, oriented; able to communicate, getting swallowing evaluation. PHYSICAL EXAMINATION: VITAL SIGNS: She is afebrile, pulse 87, respirations 18, and blood pressure 126/59. LUNGS: Bilateral good airflow. No rhonchi or crackle. HEART: S1 and S2 audible. ABDOMEN: Soft, obese, and nontender. No rebound, no guarding. NEUROLOGIC: She is awake, alert, oriented, able to communicate. LABORATORY EXAM: Blood sugar is 269. Urine culture shows moderate leukocyte, urine tox positive for opiate. Had MRI of the brain done that shows no acute intracranial finding. Chronic white matter infarct bilaterally. Chronic infarct in the right occipital lobe. ASSESSMENT: 1. Seizure disorder. 2. Chronic microvascular changes. 3. Non-insulin dependent diabetes. 4. Hypertension. 5. Moderate obesity. PLAN: We will continue patient on current medication, has been started on Keppra, I will continue that. Out of bed to chair. Encourage ambulation, if she is stable to walk. She can be transferred once cleared by Neurology. Whit Cardenas MD
--- NOTE | 2018-04-16 15:08 | US ---
PROCEDURE: Bilateral carotid artery duplex ultrasound HISTORY: Carotid stenosis PHYSICIAN(S): Markus Barajas MD. TECHNIQUE: Duplex sonography and color-flow Doppler were used to evaluate the carotid bifurcations and limited segments of the vertebral arteries bilaterally. FINDINGS: There is moderate heterogeneous echogenic plaque noted at the carotid bifurcations bilaterally. The peak systolic velocity in the proximal right internal carotid artery is 111 cm/sec. This corresponds to a 40-59 percent proximal right ICA stenosis. Mildly elevated systolic velocities are noted in the proximal right external carotid artery. There is antegrade flow in the right vertebral artery. The waveforms in the left common carotid artery are markedly blunted. This suggests a significant stenosis near the origin of the left common carotid artery. The peak systolic velocity in the proximal left internal carotid artery is 63 cm/second. There is antegrade flow in the left vertebral artery IMPRESSION: 1. Severely blunted waveforms in the left common carotid artery. 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 If this warrants further investigation, an MRA with gadolinium of the aortic arch can be performed 2. 40-59 percent proximal right ICA stenosis. 3. Antegrade flow in both vertebral arteries.
--- NOTE | 2018-04-16 15:28 | CARD ---
APPROVED REPORT Date of service: 04/15/2018 EKG Measurement Heart [id number] ID [id number] <Conclusion> Normal sinus rhythm Normal ECG
[2018-04-16 16:22] VITALS: PULSE 87
[2018-04-16] MEDS ORDERED: Insulin Reg-MEDIUM-Coverage SC SCH (16:30)
--- NOTE | 2018-04-16 16:56 | CARD ---
APPROVED REPORT Date of service: 04/16/2018 EXAM: Two-dimensional and M-mode echocardiogram with Doppler and color Doppler. INDICATION CODE STROKE/APHASIA 2D DIMENSIONS Left Atrium (2D)3.7 (1.6-4.0cm)IVSd1.3 (0.7-1.1cm) LVDd4.3 (3.9-5.9cm)PWd1.2 (0.7-1.1cm) LVDs2.8 (2.5-4.0cm)FS (%) 34.6 % LVEF (%)64.0 (>50%) M-Mode DIMENSIONS Aortic Root3.10 (2.2-3.7cm)Aortic Cusp Exc.1.70 (1.5-2.0cm) Aortic Valve AoV Peak Khzhnphh234.0cm/Kaur Peak GR.7mmHg Mitral Valve MV E Zgcyvrev31.5cm/sMV A Blceuoyb674.0cm/sE/A ratio0.8 TDI Lateral E' Peak V7.70cm/sMedial E' Peak V6.34cm/sE/Lateral E'9.8 E/Medial E'11.9 Pulmonary Valve PV Peak Lkofsxro07.5cm/sPV Peak Grad.3mmHg Tricuspid Valve TR Peak [id number]/sRAP [id number] Peak Gr.28mmHg [id number] LEFT VENTRICLE The left ventricle is normal size. There is borderline concentric left ventricular hypertrophy. The left ventricular function is normal. The left ventricular ejection fraction is within the normal range. There is normal LV segmental wall motion. Transmitral Doppler flow pattern is Grade I-abnormal relaxation pattern. RIGHT VENTRICLE The right ventricle is normal size. There is normal right ventricular wall thickness. The right ventricular systolic function is normal. ATRIA The left atrium size is normal. The right atrium size is normal. The interatrial septum is intact with no evidence for an atrial septal defect. AORTIC VALVE The aortic valve is not well visualized. There is trace aortic regurgitation. There is no aortic valvular stenosis. MITRAL VALVE The mitral valve is mildly thickened. There is no mitral valve regurgitation noted. There is no mitral valve stenosis. TRICUSPID VALVE The tricuspid valve is normal in structure. There is mild tricuspid regurgitation. There is mild pulmonary hypertension. PULMONIC VALVE The pulmonary valve is normal in structure. There is no pulmonic valvular regurgitation. GREAT VESSELS The aortic root is normal in size. The IVC is normal in size and collapses >50% with inspiration. <Conclusion> The left ventricle is normal size. There is borderline concentric left ventricular hypertrophy. The left ventricular function is normal. The left ventricular ejection fraction is within the normal range. There is normal LV segmental wall motion. Transmitral Doppler flow pattern is Grade I-abnormal relaxation pattern. There is mild pulmonary hypertension.
--- NOTE | 2018-04-17 08:35 | EEG ---
Copied To: Arnold Palma MD Attending MD: Arnold Palma MD DATE: 04/16/2018 ELECTROENCEPHALOGRAM CONDITION OF THE RECORDING: Drowsy. DIAGNOSIS: Seizure. MEDICATIONS: Reviewed by nurse per reconciliation sheet. INTERPRETATION: This is a 16-channel international recording. The background activity of this tracing was composed of 6 to 7 cycles per second. There was small amount of beta activity of 16 to 20 cycles per second seen in this recording. There was increased amount of theta activity of 5 to 7 cycles per second seen in this tracing. Drowsiness was characterized by mixed beta and theta activities. Sleep was characterized by vertex transient waves, sleep spindles and bilateral slowing. Photic stimulation showed no changes in the tracing. There was evidence of intermittent paroxysmal slow waves throughout the recording. CONCLUSION: This is an abnormal EEG due to presence of intermittent paroxysmal slow waves along with diffuse slowing consistent with moderate bilateral cerebral dysfunction. No evidence of any diffuse epileptiform activity. Please clinically correlate. Arnold Palma MD MTDElaine
== END 2018-04-16 19:48 | disposition home or self-care (01) ==
LOC: ED 14:16 → INTOOBSV 15:24 → ERH 15:24 → 2RSO 18:40
PROVIDERS: ADMIT Internal Medicine; ATTEND Internal Medicine
DX: G40.909 Epilepsy, unspecified, not intractable, without status epilepticus (principal); I10 Essential (primary) hypertension; R47.01 Aphasia; J44.9 Chronic obstructive pulmonary disease, unspecified; E11.42 Type 2 diabetes mellitus with diabetic polyneuropathy; E11.51 Type 2 diabetes mellitus with diabetic peripheral angiopathy without gangrene; E78.5 Hyperlipidemia, unspecified; F17.210 Nicotine dependence, cigarettes, uncomplicated; F05 Delirium due to known physiological condition; E78.00 Pure hypercholesterolemia, unspecified; K21.9 Gastro-esophageal reflux disease without esophagitis; G93.89 Other specified disorders of brain; F41.9 Anxiety disorder, unspecified; E66.01 Morbid (severe) obesity due to excess calories; Z68.41 Body mass index [BMI] 40.0-44.9, adult; Z88.0 Allergy status to penicillin; Z86.73 Personal history of transient ischemic attack (TIA), and cerebral infarction without residual deficits; Z79.84 Long term (current) use of oral hypoglycemic drugs
CPT/HCPCS: 70450; 70551; 71045; 80053; 80320; 80324; 80345; 80346; 80349; 80353; 80358; 80361; 81001; 82550; 82948; 83615; 83735; 83992; 84100; 84484; 85025; 85610; 85730; 87086; 93005; 93306; 93880; 95812; 96360; 97116; 97161; 99285; G0378; G8978; G8979; G8980; J1953; J3475